=== PATIENT | male | born 1950 | race Caucasian/White ===

== ENCOUNTER 2020-01-16 07:51 | Day surgery (SDC) | payer MEDICARE, OTHER ==
[~2020-01-16] VITALS: Ht 182.9 cm; Wt 159.1 kg
[~2020-01-16 07:51] MED LIST: BAYER CHEWABLE81 MG PO; CENTRUM MEN'S1 EACH PO; HYDROCODON-ACE1 EAC7 PO; KLOR-CON 1010 MEQ PO; LISINOPRIL5 MG PO; MOBIC7.5 MG PO; NEURONTIN 400400 MG PO; TORSEMIDE20 MG PO; ULTRAM50 MG PO; ZOCOR40 MG PO; ZYLOPRIM300 MG PO
[2020-01-16 08:32] LABS: CALC OSMOLALITY 279 mosm/kg (275-300); CALCIUM 9.4 mg/dL (8.5-10.1); CARBON DIOXIDE 25.9 mmol/L (21.0-32.0); CHLORIDE - SERUM 104 mmol/L (98-107); GLUCOSE 115 mg/dL (74-106); POTASSIUM - SERUM 4.3 mmol/L (3.5-5.1); SODIUM 138 mmol/L (136-145); UREA NITROGEN 22 mg/dL (7-18); eGFR NON AFRICAN AMERICAN 79 mL/min (90-120)
[2020-01-16 08:35] LABS: HEMATOCRIT 43.1 % (42.0-54.0); HEMOGLOBIN 14.2 g/dL (13.5-17.5); MCH 30.3 pg (26.0-34.0); MCHC 32.9 g/dL (31.0-37.0); MCV 92.1 fL (80.0-100.0); MEAN PLATELET VOLUME 11.1 fL (7.4-10.4); RBC 4.68 10x6/uL (4.20-6.10); WBC 7.9 10x3/uL (4.8-10.8)
[2020-01-16 09:20] VITALS: BP 155/66; Ht 182.9 cm; Wt 159.1 kg
--- NOTE | 2020-01-16 11:31 | NUR ---
1120 IV LEFT UPPER ARM INFILTRATED. DISCONTINUED
--- NOTE | 2020-01-17 10:15 | OP ---
PATIENT NAME: HUNTER ALCIEA MEDICAL RECORD: [id number] :50 LOCATION:[facility] ADMISSION DATE: SURGEON: TERRY LYON MD DATE OF OPERATION: 01/16/2020 PREOPERATIVE DIAGNOSES: 1. Degenerative arthritis of the right hip. 2. Degenerative arthritis of the right knee. POSTOPERATIVE DIAGNOSES: 1. Degenerative arthritis of the right hip. 2. Degenerative arthritis of the right knee. PROCEDURES: 1. Fluoroscopic-guided injection of the right hip with TIVA anesthesia. 2. Injection of the right knee with TIVA anesthesia. SURGEON: Terry Lyon MD ANESTHESIA: TIVA. INTRAOPERATIVE COMPLICATIONS: None. SUMMARY OF PATHOLOGIC FINDINGS: The hip and degenerative arthritis of both the knee and the hip consistent with preoperative radiographs and diagnosis. OPERATIVE SUMMARY IN DETAIL: After obtaining the appropriate preoperative orthopedic surgery consent as well as anesthetic consultation, evaluation and clearance, the patient was brought to the operating room and placed on the operating table in supine position. After adequate general TIVA anesthesia was administered, the right hip and right knee were both prepped and draped in routine sterile fashion. An 18-gauge spinal needle was then placed into the hip capsule. Small amount of Isovue was utilized to be sure it was in the appropriate position and then a total of 5 cc of 0.25% Marcaine with epinephrine and 40 mg of Depo-Medrol were placed into the hip. These radiographs were taken and submitted for final radiologist review. This was then followed by placement of the same injection into the right knee. Bandages were applied to both injection sites. The patient was awakened and taken back to outpatient in stable condition. All final needle and sponge counts were correct. TRANSINT:[id number] Voice Confirmation ID: [id number] DOCUMENT ID: [id number] TERRY LYON MD at 1015 CC: [id number] DICTATION DATE: 01/16/20 1105 DEPARTMENT ADMINISTRATOR: 01/16/20 1126 [facility] 01/16/[address] [address]
== END 2020-01-16 12:30 | disposition home or self-care (01) ==
LOC: D.OPS 07:51 → D.PAN 10:30 → D.OPS 12:30
PROVIDERS: Anesthesiology; ATTEND Orthopaedic Surgery
DX: M16.11 Unilateral primary osteoarthritis, right hip (principal); M17.11 Unilateral primary osteoarthritis, right knee; E11.9 Type 2 diabetes mellitus without complications

== ENCOUNTER → 2020-03-25 08:36 | Outpatient (CLI) | payer MEDICARE, OTHER ==
[2020-01-16 09:20] VITALS: BMI 47.6
== END | disposition home or self-care (01) ==
LOC: D.HCCECHO 08:36
PROVIDERS: ATTEND Internal Medicine Cardiovascular Disease
DX: I10 Essential (primary) hypertension (principal)

== ENCOUNTER → 2020-03-26 08:07 | Outpatient (CLI) | payer MEDICARE, OTHER ==
[2020-01-16 09:20] VITALS: BMI 47.6
== END | disposition home or self-care (01) ==
LOC: D.US 08:07
PROVIDERS: ATTEND Nurse Practitioner Family
DX: Z87.891 Personal history of nicotine dependence (principal)

== ENCOUNTER 2020-04-16 05:27 | Day surgery (SDC) | payer MEDICARE, OTHER ==
[~2020-04-16] VITALS: Ht 182.9 cm; Wt 158.8 kg
[2020-04-16 05:49] LABS: HEMATOCRIT 42.6 % (42.0-54.0); HEMOGLOBIN 13.6 g/dL (13.5-17.5); MCH 29.3 pg (26.0-34.0); MCHC 31.9 g/dL (31.0-37.0); MCV 91.8 fL (80.0-100.0); RBC 4.64 10x6/uL (4.20-6.10); RDW 14.4 % (11.5-14.5); WBC 8.6 10x3/uL (4.8-10.8)
[2020-04-16 06:07] LABS: ANION GAP 10.3 mmol/L (8-16); CALCIUM 9.2 mg/dL (8.5-10.1); CARBON DIOXIDE 27.2 mmol/L (21.0-32.0); CREATININE - SERUM 1.1 mg/dL (0.6-1.3); POTASSIUM - SERUM 4.5 mmol/L (3.5-5.1)
[2020-04-16 06:56] VITALS: BP 126/40; Ht 182.9 cm; Wt 158.8 kg
--- NOTE | 2020-04-16 08:42 | NUR ---
THIRD OPERATIVE SIGHT RIGHT KNEE PREPPED BY DR. LYON AT 0808 DRY BY 0812 DRAPED BY TALIA MORALES AT 0812.
--- NOTE | 2020-04-21 14:56 | OP ---
PATIENT NAME: HUNTER ALICEA MEDICAL RECORD: [id number] :50 LOCATION:[facility] ADMISSION DATE: SURGEON: TERRY LYON MD DATE OF OPERATION: 04/16/2020 PREOPERATIVE DIAGNOSES: Arthritis of both knees and arthritis of the right hip. POSTOPERATIVE DIAGNOSES: Arthritis of both knees and arthritis of the right hip. PROCEDURE: 1. Injection under fluoroscopy of the right hip. 2. Injection under fluoroscopy of the right knee. 3. Injection under fluoroscopy of the left knee. SURGEON: Terry Lyon MD ANESTHESIA: TIVA. INTRAOPERATIVE COMPLICATIONS: None. SUMMARY OF PATHOLOGIC FINDINGS: Consistent with preoperative radiographs and diagnosis, the patient had arthritis in all 3 spots and is very avidly trying to avoid surgery in the pandemic time. OPERATIVE SUMMARY IN DETAIL: After obtaining the appropriate preoperative orthopedic surgery consent as well as anesthetic consultation, evaluation and clearance, the patient was brought to the operating room and placed on the operating table in a supine position. After adequate general TIVA anesthesia had been administered, the right hip and bilateral knees were prepped and draped in routine sterile fashion. The right hip was approached first with an 18-gauge needle. Needle was then placed into the hip capsule under fluoroscopic guidance. Small amount of Isovue was placed to be sure that the needle was in appropriate position and then 40 mg of Depo-Medrol with 5 cc of 0.25% Marcaine with epinephrine were injected into the patient's right hip. Having completed this, attention was turned to the right knee. Likewise under fluoroscopic guidance, the right knee was then filled with 40 mg of Depo-Medrol and 5 cc of 0.25% Marcaine with epinephrine. Having completed this, attention was turned to the left knee. Again with a paramedian approach, the left knee was injected with 40 mg of Depo-Medrol and 5 cc of 0.25% Marcaine with epinephrine. Sterile bandage were applied. The patient was awakened and taken back to outpatient in stable condition. All final needle and sponge counts were correct. TRANSINT:[id number] Voice Confirmation ID: [id number] DOCUMENT ID: [id number] TERRY LYON MD at 1456 CC: [id number] DICTATION DATE: 04/21/20941 PAPER SUPERVISOR: 04/21/20 1411 [facility] 04/16/20 [facility] [address] [place] [address]
== END 2020-04-16 09:25 | disposition home or self-care (01) ==
LOC: D.OPS 05:27 → D.PAN 10:00 → D.OPS 10:00
PROVIDERS: Anesthesiology; ATTEND Orthopaedic Surgery
DX: M25.551 Pain in right hip (principal); M17.11 Unilateral primary osteoarthritis, right knee; M25.561 Pain in right knee; M16.9 Osteoarthritis of hip, unspecified; E11.9 Type 2 diabetes mellitus without complications

== ENCOUNTER 2020-08-17 07:06 | Day surgery (SDC) | payer MEDICARE, OTHER ==
[~2020-08-17] VITALS: Ht 182.9 cm; Wt 161.0 kg
--- NOTE | ~2020-08-17 | OP ---
PATIENT NAME: HUNTER ALICEA MEDICAL RECORD: [id number] :50 [facility] AD[facility] DATE: SURGEON: TERRY LYON MD DATE OF OPERATION: 08/17/2020 PREOPERATIVE DIAGNOSES: Right hip arthritis, bilateral knee arthritis. POSTOPERATIVE DIAGNOSES: Right hip arthritis, bilateral knee arthritis. PROCEDURES: 1. Right hip injection under fluoroscopic guidance. 2. Right knee injection under fluoroscopic guidance. 3. Left knee injection under fluoroscopic guidance. SURGEON: Terry Lyon MD ANESTHESIA: TIVA. INTRAOPERATIVE COMPLICATIONS: None. SUMMARY OF PATHOLOGIC FINDINGS: The patient has moderate osteoarthritis of the right hip consistent with preoperative radiographs. The patient also has bilateral degenerative arthritis of the knees. This patient is in excess of 350 pounds and is trying desperately to lose weight and has opted for injections as a stop gap method to try and continue to lose weight in preparation for total hip on the right side. OPERATIVE SUMMARY IN DETAIL: After obtaining the appropriate preoperative orthopedic surgery consent as well as anesthetic consultation, evaluation and clearance, the patient was brought to the operating room and placed on the operating table in a supine position. After adequate general TIVA anesthesia was administered, the right hip and bilateral knees were prepped and draped in a routine sterile fashion. Under fluoroscopic guidance, 18-gauge needle was placed into the hip. Small amount of Isovue was utilized to be sure that the needle was in the appropriate position. 6 cc of 0.25% Marcaine with epinephrine and 40 mg of Depo-Medrol were placed into the right hip. Having completed this, fluoroscopy was then centered over the right knee. An 18-gauge needle was utilized to inject the right knee with 40 mg of Depo-Medrol and 6 cc of 0.25% Marcaine with epinephrine. The same procedure was then repeated for the left knee. Under fluoroscopic guidance, the needle was placed into the knee and 6 cc of 0.25% Marcaine with epinephrine and 40 mg of Depo-Medrol were injected into the left knee. All puncture sites were covered with bandages. The patient was awakened and taken back to outpatient in stable condition. TRANSINT:[id number] Voice Confirmation ID: [id number] DOCUMENT ID: [id number] OPERATIVE REPORT [id number] HUNTER ALICEA MD, TERRY VALDERRAMA CC: [id number] DICTATION DATE: 08/17/20 1029 LACE PAPER MACHINE OPERATOR: 08/17/20 183 [facility] 08/17/20 [place] [id number] [place] [id number]
[2020-08-17 07:20] LABS: HEMOGLOBIN 14.3 g/dL (13.5-17.5); MCH 29.4 pg (26.0-34.0); MCHC 32.5 g/dL (31.0-37.0); MCV 90.5 fL (80.0-100.0); MEAN PLATELET VOLUME 10.7 fL (7.4-10.4); RBC 4.86 10x6/uL (4.20-6.10); RDW 14.4 % (11.5-14.5); WBC 8.4 10x3/uL (4.8-10.8)
[2020-08-17 07:37] LABS: CALC OSMOLALITY 282 mosm/kg (275-300); CALCIUM 9.6 mg/dL (8.5-10.1); CARBON DIOXIDE 25.4 mmol/L (21.0-32.0); CHLORIDE - SERUM 103 mmol/L (98-107); GLUCOSE 114 mg/dL (74-106); POTASSIUM - SERUM 4.5 mmol/L (3.5-5.1); SODIUM 140 mmol/L (136-145); UREA NITROGEN 21 mg/dL (7-18); eGFR NON AFRICAN AMERICAN 79 mL/min (90-120)
[2020-08-17 08:03] VITALS: BP 125/62; Ht 182.9 cm; Wt 161.0 kg
--- NOTE | 2020-08-17 11:50 | NUR ---
1107 IV DC'D. CATHETER TIP INTACT. NO BLEEDING AT SITE AFTER PRESSURE HELD. COBAN APPLIED TO SITE. REVIEWED DISCHARGE INSTRUCTIONS WITH PT WHO VOICES UNDERSTANDING OF INSTRUCTIONS.
== END 2020-08-17 11:35 | disposition home or self-care (01) ==
LOC: D.OPS 07:06
PROVIDERS: Anesthesiology; ATTEND Orthopaedic Surgery
DX: M16.11 Unilateral primary osteoarthritis, right hip (principal); M17.0 Bilateral primary osteoarthritis of knee; E11.9 Type 2 diabetes mellitus without complications